=== PATIENT | female | born 1980 | race African-American/Black ===

== ENCOUNTER 2018-08-30 19:20 | Emergency (ER) | payer BC ==
[~2018-08-30] VITALS: Ht 154.9 cm; Wt 88.5 kg
[2018-08-30] MEDS ORDERED: DEXAMETHASONE 4 MG TABLET PO ONE (19:45)
--- NOTE | 2018-08-30 19:47 | PHYS DOC ---
Adult General Chief Complaint Chief Complaint: FLU SYMPTOM HPI HPI Patient is a 37 year old female who complains of one week with sore throat, cough, ear fullness, body aches. She has felt feverish but has not taken her temperature. She was seen at an urgent care and prescribed Flonase and Tessalon pearls which have not helped her cough. Patient reports history of recurring strep throat. "When my daughter gets strep I get it." She however has not strep for a couple years now. She denies chest pain, abdominal pain, nausea, vomiting , diarrhea. Review of Systems Review of Systems Constitutional: Reports fevers [] Eyes: Denies change in visual acuity, redness, or eye pain [] HENT: Reports nasal congestion, ear fullness [] Respiratory: Reports cough[] GI: Denies abdominal pain, nausea, vomiting, diarrhea [] : Denies dysuria or hematuria [] Musculoskeletal: Reports diffuse body aches [] Integument: Denies rash or skin lesions [] Neurologic: Denies headache, focal weakness or sensory changes [] Complete systems were reviewed and found to be within normal limits, except as documented in this note. Current Medications Current Medications Current Medications Medications (Trade) Dose Ordered Sig/Venu Start Time Stop Time Status Last Admin Dose Admin Dexamethasone (Decadron) 10 mg 1X ONCE 08/30/18 19:45 08/30/18 19:59 DC 08/30/18 20:01 10 MG Allergies Allergies Allergies Coded Allergies Type Severity Reaction Last Updated Verified No Known Drug Allergies 08/30/18 No Physical Exam Physical Exam Constitutional: Well developed, well nourished, no acute distress, non-toxic appearance. [] HENT: Normocephalic, atraumatic, bilateral TMs normal, boggy nasal mucosa, erythematous oropharynx, no exudates [] Eyes: EOMI, conjunctiva normal, no discharge. [] Neck: Normal range of motion, no tenderness, no LAD [] Cardiovascular:Heart rate regular rhythm, no murmur [] Lungs & Thorax: Bilateral breath sounds clear to auscultation [] Skin: Warm, dry, no erythema, no rash. [] Extremities: No tenderness, ROM intact, no edema. [] Neurologic: Alert and oriented X 3, normal motor function, normal sensory function, no focal deficits noted. [] Current Patient Data Lab Values Laboratory Tests Test 08/30/18 19:50 Influenza Type A Antigen Negative (NEGATIVE) Influenza Type B Antigen Negative (NEGATIVE) EKG EKG [] Radiology/Procedures Radiology/Procedures [] Course & Med Decision Making Course & Med Decision Making Pertinent Labs reviewed. (See chart for details) Patient present with upper respiratory symptoms including sore throat, cough, nasal congestion, fevers. She reports a history of recurring strep throat. Rapid strep test was negative. Influenza A and B were negative. Patient given one dose of steroid here. She declined a prescription for cough medication and will try OTC remedies. I also recommended she use a humidifier in her bedroom. Dragon Disclaimer Dragon Disclaimer This electronic medical record was generated, in whole or in part, using a voice recognition dictation system. Departure Departure Impression: Primary Impression: Upper respiratory infection Disposition: 01 HOME, SELF-CARE Condition: STABLE Referrals: UNKNOWN PCP NAME (PCP) Patient Instructions: Upper Respiratory Infection, Adult, [id number] Additional Instructions: Use over the counter cold and cough remedies. Use humidifier at night when sleeping. Problem Qualifiers Primary Impression: Upper respiratory infection URI type: unspecified URI Qualified Codes: J06.9 - Acute upper respiratory infection, unspecified MARYAN RITTER DO Aug 30, 2018 19:47
[2018-08-30 20:00] VITALS: BP 154/81
[2018-08-30 20:27] LABS: INFLUENZA A PATIENT NEGATIVE (NEGATIVE); INFLUENZA B PATIENT NEGATIVE (NEGATIVE)
== END 2018-08-30 21:28 | disposition home or self-care (01) ==
LOC: ER 19:20
DX: J06.9 Acute upper respiratory infection, unspecified (principal); J02.9 Acute pharyngitis, unspecified; R50.9 Fever, unspecified; M79.18 Myalgia, other site
CPT/HCPCS: 87070; 87804; 87880; 99283; J8540